=== PATIENT | female | born 1955 | race Caucasian/White ===

== ENCOUNTER 2023-07-25 12:49 | Outpatient (REF) | payer MEDICARE, SELFPAY ==
[2023-07-25 16:01] LABS: MANUAL DIFF FLAG NO
[2023-07-25 16:05] LABS: Basophils Percent Auto 0.5 % (0-2); Eosinophils Absolute Auto 0.1 X10*3/uL (0.0-0.4); Eosinophils Percent Auto 1.5 % (0-4); Hematocrit 43.6 % (37.0-47.0); Hemoglobin 13.8 g/dl (12.0-16.0); Imm Gran Abs Auto 0.02 X10*3/uL (0.00-0.03); Imm Gran Pct Auto 0.3 % (0.0-0.4); Lymphocytes Absolute Auto 1.9 X10*3/uL (1.2-4.9); Lymphocytes Percent Auto 28.4 % (20-40); Mean Corpuscular HGB Conc 31.7 g/dl (31.0-35.0); Mean Corpuscular Hemoglobin 28.9 pg (27.0-33.0); Mean Corpuscular Volume 91.4 fL (80.0-98.0); Mean Platelet Volume 11.8 fL (9.4-12.3); Monocytes Absolute Auto 0.5 X10*3/uL (0.1-1.2); Monocytes Percent Auto 6.8 % (2-11); Neutrophils Absolute Auto 4.1 x10*3/uL (2.0-8.3); Neutrophils Percent Auto 62.5 % (45-73); Platelet Count 256 X10*3/uL (160-400); Red Blood Count 4.77 X10*6/uL (4.20-5.50); Red Cell Distribution Width 13.4 % (11.0-16.0); White Blood Count 6.6 X10*3/uL (4.8-10.8)
[2023-07-25 16:51] LABS: Estimated Average Glucose 143 mg/dL; Hemoglobin A1c % 6.6 % (<6.0)
[2023-07-25 17:18] LABS: Alanine Aminotransferase 14 U/L (0-31); Alkaline Phosphatase 101 U/L (39-117); Anion Gap 13 (12-20); Aspartate Amino Transferase 20 U/L (5-31); Bilirubin Direct 0.2 mg/dL (0.0-0.5); Bilirubin Total 0.6 mg/dL (0.0-1.0); Blood Urea Nitrogen 11 mg/dL (9-16); Calcium 9.6 mg/dL (8.4-10.2); Carbon Dioxide 31 mmol/L (22-29); Chloride 103 mmol/L (96-108); Cholesterol 198 mg/dL (<200); Estimated Glomerular Filt Rate > 60; Glucose Random 111 mg/dL (60-115); HDL Cholesterol 55 mg/dL (>40); LDL Cholesterol Calculated 121 mg/dL (<100); Potassium 3.7 mmol/L (3.3-5.1); Sodium 143 mmol/L (135-145); Total Protein 7.7 g/dL (6.5-8.0); Triglycerides 112 mg/dL (<150)
[2023-07-25 17:20] LABS: Creatinine Urine 31.53 mg/dL; Microalbumin Urine < 5.0 mg/L
[2023-07-25 17:41] LABS: Free T4 (Free Thyroxine) 1.43 ng/dL (0.71-1.85); Thyroid Stimulating Hormone 0.25 uIU/mL (0.32-4.0); Vitamin D 25-OH Total 45.2 ng/mL (>30)
[2023-07-28 04:19] LABS: Vitamin A 27 mcg/dL (38-98)
== END 2023-07-25 12:50 | disposition home or self-care (01) ==
LOC: HO.HHCL 12:49
PROVIDERS: Visit Provider Family Medicine
DX: E11.40 Type 2 diabetes mellitus with diabetic neuropathy, unspecified (principal); Z79.4 Long term (current) use of insulin; E55.9 Vitamin D deficiency, unspecified
CPT/HCPCS: 36415; 80048; 80061; 80076; 82043; 82306; 82570; 83036; 84439; 84443; 84590; 85025

== ENCOUNTER 2023-12-23 13:06 | Outpatient (REF) | payer MEDICARE, SELFPAY ==
[2023-12-23 17:08] LABS: Cholesterol 191 mg/dL (<200); HDL Cholesterol 66 mg/dL (>40); LDL Cholesterol Calculated 109 mg/dL (<100); Triglycerides 84 mg/dL (<150)
[2023-12-23 17:10] LABS: Thyroid Stimulating Hormone 0.13 uIU/mL (0.32-4.0)
[2023-12-29 04:44] LABS: Vitamin A 30 mcg/dL (38-98)
== END 2023-12-23 13:07 | disposition home or self-care (01) ==
LOC: HO.HHCL 13:06
PROVIDERS: Visit Provider Family Medicine
DX: E11.9 Type 2 diabetes mellitus without complications (principal); Z79.4 Long term (current) use of insulin
CPT/HCPCS: 36415; 80061; 84439; 84443; 84590

== ENCOUNTER 2024-05-29 12:59 | Outpatient (REF) | payer MEDICARE, SELFPAY ==
[2024-05-29 17:22] LABS: Free T4 (Free Thyroxine) 1.15 ng/dL (0.71-1.85); Thyroid Stimulating Hormone 0.19 uIU/mL (0.32-4.0)
== END 2024-05-29 13:00 | disposition home or self-care (01) ==
LOC: HO.HHCL 12:59
PROVIDERS: Visit Provider Family Medicine
DX: E03.9 Hypothyroidism, unspecified (principal)
CPT/HCPCS: 36415; 84439; 84443

== ENCOUNTER 2024-07-19 13:44 | Outpatient (REF) | payer MEDICARE, SELFPAY ==
[2024-07-19 16:42] LABS: MANUAL DIFF FLAG NO
[2024-07-19 16:47] LABS: Basophils Percent Auto 0.5 % (0-2); Eosinophils Absolute Auto 0.1 X10*3/uL (0.0-0.4); Hematocrit 40.4 % (37.0-47.0); Hemoglobin 12.9 g/dl (12.0-16.0); Imm Gran Abs Auto 0.02 X10*3/uL (0.00-0.03); Imm Gran Pct Auto 0.3 % (0.0-0.4); Lymphocytes Absolute Auto 1.9 X10*3/uL (1.2-4.9); Lymphocytes Percent Auto 30.6 % (20-40); Mean Corpuscular HGB Conc 31.9 g/dl (31.0-35.0); Mean Corpuscular Hemoglobin 29.3 pg (27.0-33.0); Mean Corpuscular Volume 91.8 fL (80.0-98.0); Mean Platelet Volume 12.3 fL (9.4-12.3); Monocytes Absolute Auto 0.4 X10*3/uL (0.1-1.2); Monocytes Percent Auto 6.1 % (2-11); Neutrophils Absolute Auto 3.8 x10*3/uL (2.0-8.3); Neutrophils Percent Auto 61.5 % (45-73); Platelet Count 204 X10*3/uL (160-400); Red Cell Distribution Width 13.5 % (11.0-16.0); White Blood Count 6.2 X10*3/uL (4.8-10.8)
[2024-07-19 16:58] LABS: Estimated Average Glucose 160 mg/dL; Hemoglobin A1C 183.0797 umol/L; Hemoglobin A1c % 7.2 % (<6.0); Total Hemoglobin (HGBA1C) 3319.9757 umol/L
[2024-07-19 17:32] LABS: Folate 12.5 ng/mL (> or = 4.0); Vitamin B12 373 pg/mL (200-900)
[2024-07-19 17:39] LABS: Alanine Aminotransferase 10 U/L (0-31); Albumin Level 3.9 g/dL (3.5-5.0); Alkaline Phosphatase 83 U/L (39-117); Anion Gap 19 (12-20); Aspartate Amino Transferase 22 U/L (5-31); Bilirubin Direct 0.2 mg/dL (0.0-0.5); Bilirubin Total 0.6 mg/dL (0.0-1.0); Blood Urea Nitrogen 16 mg/dL (9-16); Calcium 9.1 mg/dL (8.4-10.2); Carbon Dioxide 23 mmol/L (22-29); Chloride 103 mmol/L (96-108); Cholesterol 168 mg/dL (<200); Estimated Glomerular Filt Rate > 60; Glucose Random 109 mg/dL (60-115); HDL Cholesterol 56 mg/dL (>40); Iron 68 mcg/dL (30-160); LDL Cholesterol Calculated 92 mg/dL (<100); Percent Iron Saturation 27 % (15-50); Potassium 3.4 mmol/L (3.3-5.1); Sodium 142 mmol/L (135-145); Total Iron Binding Capacity 254 mcg/dL (228-428); Total Protein 7.1 g/dL (6.5-8.0); Triglycerides 101 mg/dL (<150); Unsaturated Iron Binding 186 ug/dL
[2024-07-19 17:55] LABS: Ferritin 227 ng/mL (10-250); Free T4 (Free Thyroxine) 1.26 ng/dL (0.71-1.85); Vitamin D 25-OH Total 56.9 ng/mL (>30)
[2024-07-20 08:03] LABS: Thyroglobulin Antibodies 83 IU/mL (< or = 1)
== END 2024-07-19 13:45 | disposition home or self-care (01) ==
LOC: HO.HHCL 13:44
PROVIDERS: Visit Provider Family Medicine
DX: Z00.00 Encounter for general adult medical examination without abnormal findings (principal); E11.9 Type 2 diabetes mellitus without complications; Z79.4 Long term (current) use of insulin; I10 Essential (primary) hypertension; E78.49 Other hyperlipidemia; E03.9 Hypothyroidism, unspecified; G47.33 Obstructive sleep apnea (adult) (pediatric); I87.2 Venous insufficiency (chronic) (peripheral); R29.898 Other symptoms and signs involving the musculoskeletal system; Z23 Encounter for immunization
CPT/HCPCS: 36415; 80048; 80061; 80076; 82306; 82607; 82728; 82746; 83036; 83540; 84439; 84443; 85025; 86800

== ENCOUNTER 2025-05-14 13:05 | Outpatient (REF) | payer MEDICARE, SELFPAY ==
--- OUTSIDE RECORDS SUMMARY | 2025-05-14 11:15 | XMS_ITS | Encounter Summary ---
Author Organization [employer] Address [address] [place] [address] [address] [place] [address] Care Team Providers Care Digital Account Supervisor Name Role Phone Kelley Pierce DO Primary Care Provider + [phone] Reason for Referral * Consultation (Routine) - Pending Review Specialty Diagnoses / Procedures Referred By Contac t Referred To Contact Occupational Therapy Diagnoses Venous insufficiency Kelley Pierce DO [address] [place] [address] Phone: tel: fax: Referral ID Status Reason Start Date Expiration Date Visits Requested Visits Authorized [id number] Pending Review Specialty Services Required 05/14/2025 05/14/2026 1 1 * Consultation (Routine) - Pending Review Specialty Diagnoses / Procedures Referred By Teodoro t Referred To Contact Physiatry Diagnoses Venous insufficiency Bilateral leg weakness Kelley Pierce DO [address] [place] [address] Phone: tel: fax: Referral ID Status Reason Start Date Expiration Date Visits Requested Visits Authorized [id number] Pending Review Specialty Services Required 05/14/2025 05/14/2026 1 1 * Neurology (Routine) - Authorized Specialty Diagnoses / Procedures Referred By Contomar t Referred To Contact Diagnoses Bilateral leg weakness Procedures Nerve conduction test Kelley Pierce DO [address] [place] [address] Phone: tel: fax: [address] Phone: tel: fax: Referral ID Status Reason Start Date Expiration Date V isits Requested Visits Authorized [id number] Authorized 05/14/2025 05/14/2026 1 1 * Neurology (Routine) - Authorized Specialty Diagnoses / Procedures Referred By Contomar t Referred To Contact Diagnoses Bilateral leg weakness Procedures EMG Kelley Pierce DO [address] [place] [address] Phone: tel: fax: [address] Phone: tel: fax: Referral ID Status Reason Start Date Expiration Date V isits Requested Visits Authorized [id number] Authorized 05/14/2025 05/14/2026 1 1 Encounter Details Date Type Department Care Team (Late st Contact Info) Description 05/14/2025 11:15 AM EDT Office Visit [facility] [address] [place] [address] Kelley Pierce DO [address] [place] [address] Type 2 diabetes mellitus with diabetic neuropathy, with long-term current use of insulin ([facility]) (Primary Dx); Essential hypertension; Other hyperlipidemia; Hypothyroidism (acquired); Obstructive sleep apnea; Venous insufficiency; Bilateral leg weakness; Other insomnia; Healthcare maintenance; Dietary counseling; Exercise counseling; Encounter for immunization Social History Tobacco Use Types Packs/Day Years Used Date Smoking Tobacco: Never Passive Smoke Exposure: Never Smokeless Tobacco: Never Alcohol Use Standard Drinks/Week Comments Never 0 (1 standard drink = 0.6 oz pur e alcohol) Depression Answer Date Recorded Patient Health Questionnaire-9 Score 0 05/29/2024 Patient Health Questionnaire-9 Score 0 05/29/2024 Last PHQ-9: Questionnaire Data Not on file 0 05/29/2024 Housing Stability Answer Date Recorded What is your housing situation today? I have aundrea urena 07/25/[address] you li ve. Do you have problems with any of the following? None of the above 07/25/2023 Food Insecurity Answer Date Recorded Within the past 12 months, y ou worried that your food would run out before you got money to buy more: Never True 07/25/2023 Within the past 12 months,th e food you bought just didn't last and you didn't have enough money to get more: Never True 02/2023 Transportation Answer Date Recorded In the past 12 months, has l ack of transportation kept you from medical appts, meetings, work or from getting things needed for daily living? No 07/25/2023 Utilities Answer Date Recorded In the past 12 months, has t he electric, gas, oil or water company threatened to shut off services in your home? No 07/25/2023 Depression Answer Date Recorded Patient Health Questionnaire-2 Score 0 05/29/2024 Comments No Sex and Gender Information Value Date Recorded Sex Assigned at Female 07/19/2022 10:21 AM EDT Legal Sex Female 10:21 AM EDT Gender Identity Female 07/19/2022 10:21 AM EDT Sexual Orientation Straight 02/28/2023 8: 10 AM EDT documented as of this encounter Last Filed Vital Signs Vital Sign [place] Time Taken Comments Blood Pressure 132/70 05/14/2025 11:15 AM EDT Pulse 85 05/14/2025 11:15 AM EDT Temperature 36.8 C (98.3 F) 05/14/2025 11:15 AM EDT Respiratory Rate 20 05/14/2025 11:15 AM EDT Oxygen Saturation 96% 05/14/2025 11:15 AM EDT Inhaled Oxygen Concentration - - Weight 139 kg (307 lb) 05/14/2025 11:15 AM EDT Height 170.2 cm (5' 7 ) 05/14/2025 11:15 AM EDT Body Mass Index 48.08 05/14/2025 11:15 AM EDT documented in this encounter Plan of Treatment Scheduled Orders Name Type Priority Associated Diagnoses Orde r Schedule T4, Free Lab Routine Type 2 diabetes mellitus with diabetic neuropathy, with long-term current use of insulin ([facility]) Essential hypertension Other hyperlipidemia Hypothyroidism (acquired) Obstructive sleep apnea Venous insufficiency Bilateral leg weakness Healthcare maintenance Expected: 05/14/2025 (Approximate), Expires: 05/14/2026 Lipid Panel, Standard Lab Routine Type 2 diabetes mellitus with diabetic neuropathy, with long-term current use of insulin ([facility]) Essential hypertension Other hyperlipidemia Hypothyroidism (acquired) Obstructive sleep apnea Venous insufficiency Bilateral leg weakness Healthcare maintenance Expected: 05/14/2025 (Approximate), Expires: 05/14/2026 TSH Lab Routine Type 2 diabetes mellitus with diabetic neuropathy, with long-term current use of insulin ([facility]) Essential hypertension Other hyperlipidemia Hypothyroidism (acquired) Obstructive sleep apnea Venous insufficiency Bilateral leg weakness Healthcare maintenance Expected: 05/14/2025 (Approximate), Expires: 05/14/2026 Vitamin D, 25-Hydroxy, Total, Immunoassay Lab Routine Type 2 diabetes mellitus with diabetic neuropathy, with long-term current use of insulin ([facility]) Essential hypertension Other hyperlipidemia Hypothyroidism (acquired) Obstructive sleep apnea Venous insufficiency Bilateral leg weakness Healthcare maintenance Expected: 05/14/2025 (Approximate), Expires: 05/14/2026 Hepatic Function Panel Lab Routine Type 2 diabetes mellitus with diabetic neuropathy, with long-term current use of insulin ([facility]) Essential hypertension Other hyperlipidemia Hypothyroidism (acquired) Obstructive sleep apnea Venous insufficiency Bilateral leg weakness Healthcare maintenance Expected: 05/14/2025 (Approximate), Expires: 05/14/2026 Hemoglobin A1c Lab Routine Type 2 diabetes mellitus with diabetic neuropathy, with long-term current use of insulin ([facility]) Essential hypertension Other hyperlipidemia Hypothyroidism (acquired) Obstructive sleep apnea Venous insufficiency Bilateral leg weakness Healthcare maintenance Expected: 05/14/2025 (Approximate), Expires: 05/14/2026 Basic Metabolic Panel Lab Routine Type 2 diabetes mellitus with diabetic neuropathy, with long-term current use of insulin ([facility]) Essential hypertension Other hyperlipidemia Hypothyroidism (acquired) Obstructive sleep apnea Venous insufficiency Bilateral leg weakness Healthcare maintenance Expected: 05/14/2025 (Approximate), Expires: 05/14/2026 CBC auto differential Lab Routine Type 2 diabetes mellitus with diabetic neuropathy, with long-term current use of insulin ([facility]) Essential hypertension Other hyperlipidemia Hypothyroidism (acquired) Obstructive sleep apnea Venous insufficiency Bilateral leg weakness Healthcare maintenance Expected: 05/14/2025 (Approximate), Expires: 05/14/2026 Thyroid Peroxidase Antibodies Lab Routine Hypothyroidism (acquired) Expected: 05/14/2025 (Approximate), Expires: 05/14/2026 Thyroglobulin Antibodies Lab Routine Hypothyroidism (acquired) Expected: 05/14/2025 (Approximate), Expires: 05/14/2026 EMG Neurology Routine Bilateral leg weakness Expected: 05/14/2025, Expires: 11/14/2025 Nerve conduction test Neurology Routine Bilateral leg weakness Expected: 05/14/2025 (Approximate), Expires: 05/14/2026 Scheduled Referrals Name Type Priority Associated Diagnoses Orde r Schedule Referral to Physiatry Outpatient Referral Routine Venous insufficiency Bilateral leg weakness Expected: 05/14/2025 (Approximate), Expires: 05/14/2026 Referral to Occupational Therapy Outpatient Referral Routine Venous insufficiency Expected: 05/14/2025 (Approximate), Expires: 05/14/2026 documented as of this encounter Procedures Procedure Name Priority Date/Time Associated Diagnosis Comments POCT GLYCATED HEMOGLOBIN, TOTAL Routine 05/14/2025 11:29 AM EDT Type 2 diabetes mellitus with diabetic neuropathy, with long-term current use of insulin ([facility]) POCT GLUCOSE Routine 05/14/2025 11:28 AM EDT Type 2 diabetes mellitus with diabetic neuropathy, with long-term current use of insulin ([facility]) documented in this encounter Results * (ABNORMAL) POCT HGB A1C (05/14/2025 11:29 AM EDT) Pathologist [facility] Hemoglobin A1C 7.2(A) 4.0 - 5.7 % QC Media Lot # [id number] Lot# Expiration Date 124 Blood 05/14/2025 11:2 9 AM EDT Kelley Pierce DO POINT OF CARE TEST ENTER/MARTIN T ORDERABLES Final Result * POCT Glucose (05/14/2025 11:28 AM EDT) Glucose Blood, POC 124 60 - 200 mg/dL QC Media Lot # [id number] Lot# Expiration Date ,696,819 Blood Capillary blood specimen / Unknown 05/14/2025 11:28 AM EDT Kelley Pierce DO POINT OF CARE TEST ENTER/MARTIN T ORDERABLES Final Result documented in this encounter Visit Diagnoses Diagnosis Type 2 diabetes mellitus with diabetic neuropathy, with long-term current use of insulin ([facility])- Primary Essential hypertension Unspecified essential hypertension Other hyperlipidemia Hypothyroidism (acquired) Unspecified hypothyroidism Obstructive sleep apnea Obstructive sleep apnea (adult) (pediatric) Venous insufficiency Unspecified venous (peripheral) insufficiency Bilateral leg weakness Muscle weakness (generalized) Other insomnia Healthcare maintenance Dietary counseling Dietary surveillance and counseling Exercise counseling Encounter for immunization documented in this encounter Additional Health Concerns Assessment Noted Time PHQ-9 Depression Total Score: 0 05/29/20 24 11:23 AM EDT documented as of this encounter Care Teams Digital Account Supervisor Relationship Specialty Start Date End Date Kelley Pierce DO [address] [place] [id number] PCP - General Family Medicine 09/19/18 documented as of this encounter
--- OUTSIDE RECORDS SUMMARY | 2025-05-14 13:51 | XMS_ITS | Clinical Summary ---
Author Organization [employer] Address [address] [facility] [address] [place] [address] Care Team Providers Care Manager Long Term Care Name Role Phone KariKelley Primary Care Provider [phone] Allergies Active Allergy Reactions Criticality Noted Date Comments Octacosanol 05/29/2024 Medications hydroCHLOROthi azide (HYDRODiuril) 25 MG tablet Take 1 tablet (25 mg) by mouth Once per day. 90 tablet 3 024 2024 Active lisinopril 40 MG tablet TAKE 1 TABLET(40 MG) BY MOUTH IN THE MORNING 90 tablet 3 Active atorvastatin (Lipitor) 10 MG tablet TAKE 1 TABLET(10 MG) BY MOUTH IN THE MORNING 90 tablet 3 024 Active HumaLOG KWIKPEN 100 UNIT/ML injection Inject 8-16 Units under the skin with breakfast, with lunch, and with evening meal. 60 mL 2 Active levothyroxine (Synthroid) 137 MCG tablet Take 137 mcg by mouth before breakfast. 30 tablet 11 025 2025 Active Mounjaro 15 MG/0.5ML solution auto-injectorI ndications:Typ e 2 diabetes mellitus with diabetic neuropathy, with long-term current use of insulin ([facility]) ADMINISTER 15 MG UNDER THE SKIN 1 TIME EVERY WEEK 2 mL 3 025 Active insulin glargine (Lantus SoloStar) 100 UNIT/ML pen INJECT SUBCUTANEOUSLY 40 UNITS EVERY EVENING 45 mL 2 025 Active amitriptyline (Elavil) 10 MG tablet Take 1-2 tablets (10-20 mg) by mouth at bedtime. 60 tablet 3 025 2025 Active Continuous Glucose [employer]orer (FreeStyle Blane 3 Manns Choice) device 1 each Once per day. Use as directed for CGM 1 each 025 Active Continuous Glucose Sensor (FreeStyle Blane 3 Plus Sensor) misc 1 each every 15 days. Apply 1 every 15 days as directed for CGM 2 each Active glucose blood (FreeStyle Precision Dano Test) test strip Use to test blood sugar 3 times daily in case of CGM failure or extremes of BG 100 each 11 025 2025 Active Blood Glucose Monitoring Suppl (Accu-Chek Mary Grace Plus) w/Device kit Use as directed to check BS three times a day 1 kit Active Blood Glucose Calibration (Accu-Chek Mary Grace) solution Use as directed 1 each Active Alcohol Sheets (Alcoh-Wipe) sheet Test daily before all meals/snacks and once before bedtime. 1 each 11 Active Continuous Blood Gluc [employer]orer (FreeStyle Blane 2 Manns Choice) device 1 each 3 times daily. 1 each 023 2024 Discontinued Continuous Glucose [employer]orer (FreeStyle Blane 2 Manns Choice) device 1 each 3 times daily. 1 each 024 2024 Discontinued glucose blood (OneTouch Verio) test stripIndicatio ns:Type 2 diabetes mellitus with diabetic neuropathy, with long-term current use of insulin ([facility]) USE DIRECTED UP TO 6 TIMES A DAY 100 each 5 024 2024 Discontinued Continuous Glucose Sensor (FreeStyle Blane 2 Sensor) misc USE TO TEST 3 TIMES DAILY DIRECTED 8 each 2 025 2024 Discontinued Active Problems Problem Noted Date Diagnosed Date Hyperlipidemia 08/25/2015 Obstructive sleep apnea 08/25/2015 Peripheral neuropathy 08/25/2015 Psoriasis 08/25/2015 Vitamin D deficiency 08/25/2015 History of necrotising fasciitis 09/13/2014 Diabetic retinopathy 12/23/2008 Overview (02/28/2023): Sees Dr Boykin, 11/20/09 mild retinopathy BMI 50.0-59.9, adult 05/07/2008 Hypothyroidism 11/12/2007 Essential hypertension 09/09/2006 Type 2 diabetes mellitus 06/15/2006 Overview (02/28/2023): she states she is followed for DM at [facility] and that her labs are up to date there. 08/31/[address] Johnson to be scheduled 06/26 Resolved Problems Problem Noted Date Diagnosed Date Resolved Date Recurrent ventral incisional hernia 12/17/2015 02/28/2023 Pure hypercholesterolemia 09/09/2006 Encounters Date Type Department Care Team Description 05/14/2025 11:15 AM EDT Office Visit [facility] [address] [place] [address] [phone] Kelley Pierce DO Type 2 diabetes mellitus with diabetic neuropathy, with long-term current use of insulin ([facility]) (Primary Dx); Essential hypertension; Other hyperlipidemia; Hypothyroidism (acquired); Obstructive sleep apnea; Venous insufficiency; Bilateral leg weakness; Other insomnia; Healthcare maintenance; Dietary counseling; Exercise counseling; Encounter for immunization 05/14/2025 Travel 05/13/2025 Telephone [facility] [address] [place] [address] [phone] Kelley Pierce DO chart prep 05/13/2025 Telephone [facility] [address] [place] [address] [phone] Kelley Pierce DO Insurance 04/25/2025 Telephone [facility] [address] [place] [address] [phone] Kelley Pierce DO Recall Appointment 04/25/2025 Travel 04/08/2025 Refill [facility] [address] [place] [address] [phone] Daniela Sanchez ANP 04/06/2025 Refill [facility] [address] [place] [address] [phone] Kelley Pierce DO from Last 3 Months Immunizations Immunization Administration Dates Next Due Influenza High-dose Quadriva lent Preservative Free 07/25/2023,07/21/2022 Influenza injectable quadriv alent IIV4 with preservative 11/16/2017 Influenza injectable quadriv alent preservative free 07/11/2020,06/18/2019,08/25/2015 Influenza, High Dose Seasona l, Preservative Free 05/29/2024 Influenza, IIV3, injectable 06/26/2009, 8 Novel [id number], preservative-free 09/26 Pfizer Covid-19 Vaccine 12+ 10/09/2024, 4,07/25/2023 Pneumococcal Conjugate PCV 20 07/21/2022 Pneumococcal Polysaccharide PPSV23 08/25/2015 Tdap 05/14/2025,05/19/2015,11/30/2007 Social History Tobacco Use Types Packs/Day Years Used Date Smoking Tobacco: Never Passive Smoke Exposure: Never Smokeless Tobacco: Never Tobacco Cessation:Counseling Given: Not Answered Alcohol Use Standard Drinks/Week Comments Never 0 [...] Orientation Straight 02/28/2023 8: 10 AM EDT Last Filed Vital Signs Vital Sign Reading [...] Mass Index 48.08 05/14/2025 11:15 AM EDT Plan of Treatment Health Maintenance Due Date Last Done Comments CT Colonography 1957 Colonoscopy 1957 FIT 1957 FOBT 1957 Sigmoidoscopy 1957 Diabetes: Foot Exam 1967 Eye Exam 1967 Hepatitis C Screening 1975 Zoster Vaccines (1 of 2) 2007 RSV Patients and Patients Aged 60 years or older (1 - Risk 60-74 years 1-dose series) 2017 Diabetes: Urine Protein Screening 07/25/2024 07/25/2023 SDOH Screening 12/14/2024 12/15/2023 Mammogram 02/02/2025 02/02/2023 COVID-19 Vaccine ( season) 2025 10/09/2024, 12/23/2023, 07/25/2023, Additional history exists Influenza Vaccine (#1) 2025 , 07/25/2023, 07/21/2022, Additional history exists Depression Screening 05/29/2025 05/29/2024, 05/29/20 24 Lipid Panel 07/19/2025 07/19/2024, 04/0 01/2024, 07/25/2023 Diabetes: Hemoglobin A1C 08/14/2025 025, 10/09/2024, 07/19/2024, Additional history exists Alcohol/Substance Use Screening 05/14/2026 05/14/2025 Tobacco Screening 05/14/2026 05/14/2025 Colorectal Cancer Screening 11/03/2026 FIT DNA/Cologuard 11/03/2026 11/03/2023 DTaP/Tdap/Td Vaccines (4 - Td or Tdap) 05/14/2035 05/14/2025, 05/19/2015, 11/30/2007 Pneumococcal Vaccine: 50+ Years Completed 07/21/2022, 08/25/2015 HIB Vaccines Aged Out No longer eligi ble based on patient's age to complete this topic HPV Vaccines Aged Out No longer eligi ble based on patient's age to complete this topic Hepatitis A Vaccines Aged Out No long er eligible based on patient's age to complete this topic Hepatitis B Vaccines Aged Out No long er eligible based on patient's age to complete this topic IPV Vaccines Aged Out No longer eligi ble based on patient's age to complete this topic Meningococcal B Vaccine Aged Out No l onger eligible based on patient's age to complete this topic Meningococcal Vaccine Aged Out No adrian donny eligible based on patient's age to complete this topic RSV under 20 months Aged Out No longe r eligible based on patient's age to complete this topic Rotavirus Vaccines Aged Out No longer eligible based on patient's age to complete this topic Procedures Procedure Name Priority Date/Time Associated Diagnosis Comments POCT GLYCATED HEMOGLOBIN, TOTAL Routine 05/14/2025 11:29 AM EDT Type 2 diabetes mellitus with diabetic neuropathy, with long-term current use of insulin ([facility]) POCT GLUCOSE Routine 05/14/2025 11:28 AM EDT Type 2 diabetes mellitus with diabetic neuropathy, with long-term current use of insulin ([facility]) LIPID PANEL, STANDARD Routine 07/19/2024 1:45 PM EDT Type 2 diabetes mellitus without complication, with long-term current use of insulin (CMS/HCC) Essential hypertension Other hyperlipidemia Hypothyroidism (acquired) Obstructive sleep apnea Venous insufficiency Bilateral leg weakness Healthcare maintenance Encounter for immunization LAB COLOGUARD COLON CANCER SCREEN Routine 11/03/2023 9:45 AM EST Healthcare maintenance ALBUMIN, RANDOM URINE W/CREATININE Routine 07/25/2023 12:53 PM EST HM MAMMOGRAPHY Routine 02/02/2023 from Last 3 Months or Most Recently Relevant to Health Maintenance Results * (ABNORMAL) POCT HGB A1C (05/14/2025 11:29 AM EDT) Hemoglobin A1C 7.2(A) 4.0 - 5.7 % QC Media Lot # [id number] Lot# Expiration Date Blood 05/14/2025 11:2 9 AM EDT Kelley Pierce DO POINT OF CARE TEST ENTER/MARTIN T ORDERABLES Final Result * POCT Glucose (05/14/2025 11:28 AM EDT) Glucose Blood, POC 124 60 - 200 mg/dL [employer] Lot # [id number] Lot# Expiration Date Blood Capillary blood specimen / Unknown 05/14/2025 11:28 AM EDT Kelley Pierce DO POINT OF CARE TEST ENTER/MARTIN T ORDERABLES Final Result * Lipid Panel, Standard (07/19/2024 1:45 PM EDT) Triglycerides 101 <150 mg/dL [facility] Comment:Desirable Triglyceri de: less than 150 mg/dLBorderline High Triglyceride 150-199 mg/dLHigh Triglyceride: 200-499 mg/dLVery High Triglyceride: greater than or equal to 5OO mg/dL Cholesterol 168 <200 mg/dL [facility] Comment:Desirable Cholestero l: less than 200 mg/dLBorderline High Cholesterol: 200-239 mg/dLHigh Cholesterol: greater than 239 mg/dL LDL Cholesterol Calculated 92 <100 mg/dL [facility] Comment:Desirable LDL: less than 100 mg/dLNear Optimal/Above Optimal LDL: 110- 129 mg/dLBorderline High LDL: 130-159 mg/dLHigh LDL: 160-189 mg/dLVery High LDL: greater than or equal to 190 mg/dL HDL Cholesterol 56 >40 mg/dL [facility] Comment:Desirable HDL: great er than 40 mg/dL Note: This HDL assay may give artificially low results in patients with liver disease. Blood Venous blood specimen / Unknown 07/19/2024 1:45 PM EDT 07/19/2024 4:35 PM EDT Kelley Pierce DO LAB BLOOD ORDERABLES Final R esult [facility] [address] [place] [phone] * Cologuard?? colon cancer screening (11/03/2023 9:45 AM EST) Cologuard Result Negative Negative 11/15/19 10:05 AM EST [facility] (CLIA #:[id number]) Comment: NEGATIVE TEST RESULT. A negative Cologuard result indicates a low likelihood that a colorectal cancer (CRC) or advanced adenoma (adenomatous polyps with more advanced pre-malignant features) is present. The chance that a person with a negative Cologuard test has a colorectal cancer is less than 1 in 1500 (negative predictive value >99.9%) or has an advanced adenoma is less than 5.3% (negative predictive value 94.7%). These data are based on a prospective cross-sectional study of 10,000 individuals at average risk for colorectal cancer who were screened with both Cologuard and colonoscopy. (Jose Hansen al, N Engl J Med 2014;370(14):4929-8204) The normal value (reference range) for this assay is negative. COLOGUARD RE-SCREENING RECOMMENDATION: Periodic colorectal cancer screening is an important part of preventive healthcare for asymptomatic individuals at average risk for colorectal cancer. Following a negative Cologuard result, the [place] Cancer Society and U.S. Multi-Society Task Force screening guidelines recommend a Cologuard re-screening interval of 3 years. References: [place] [employer] Guideline for Colorectal Cancer Screening: https://www.cancer.org/cancer/gpgur-edwncn-kmbmgc/wbwrcypdp-ootsszosh-xqowtgv/ac s-rec ommendations.html.; Juan Jose DK, Fredy PRIETO, Tristan BarberK, Colorectal Cancer Screening: Recommendations for Physicians and Patients from the U.S. Multi-Society Task Force on Colorectal Cancer Screening , Am J Gastroenterology 2017; 112:4332-9574. TEST DESCRIPTION: Composite algorithmic analysis of stool DNA-biomarkers with hemoglobin immunoassay. Quantitative values of individual biomarkers are not reportable and are not associated with individual biomarker result reference ranges. Cologuard is intended for colorectal cancer screening of adults of either sex, 45 years or older, who are at average-risk for colorectal cancer (CRC). Cologuard has been approved for use by the U.S. FDA. The performance of Cologuard was established in a cross sectional study of average-risk adults aged 50-84. Cologuard performance in patients ages 45 to 49 years was estimated by sub-group analysis of near-age groups. Colonoscopies performed for a positive result may find as the most clinically significant lesion: colorectal cancer [4.0%], advanced adenoma (including sessile serrated polyps greater than or equal to 1cm diameter) [20%] or non- advanced adenoma [31%]; or no colorectal neoplasia [45%]. These estimates are derived from a prospective cross-sectional screening study of 10,000 individuals at average risk for colorectal cancer who were screened with both Cologuard and colonoscopy. (Jose Hansen al, N Engl J Med 2014;370(14):0043-2568.) Cologuard may produce a false negative or false positive result (no colorectal cancer or precancerous polyp present at colonoscopy follow up). A negative Cologuard test result does not guarantee the absence of CRC or advanced adenoma (pre-cancer). The current Cologuard screening interval is every 3 years. ([place] Cancer Society and U.S. Multi-Society Task Force). Cologuard performance data in a 10,000 patient pivotal study using colonoscopy as the reference method can be accessed at the following location: www.[employer].com/results. Additional description of the Cologuard test process, warnings and precautions can be found at www.colTelecon Grouprd.[employer]. Stool specimen (specimen) 11/03/2023 9:45 AM EST 11/05/2023 2:13 PM EST Kelley Pierce DO LAB MOLECULAR DIAGNOSTICS OR DERABLES Final Result [facility] (CLIA #:[id number]) [address] [place] [address], * Albumin, Random Urine W/Creatinine (07/25/2023 12:53 PM EST) Creatinine, Urine 31.53 mg/dL [facility] Microalbumin Urine <5.0 mg/L [facility] Microalbum Creatinine Ratio Ur TNP <30 ug/mg cr [facility] Comment:Unable to calculate albumin/creatinine ratio due to lowmicroalbumin or creatinine result. 07/25/2023 12:5 3 PM EST 07/25/2023 3:48 PM EST Kelley Pierce DO LAB URINE ORDERABLES Final R esult Performing Organization Address [facility]/ZIP Co de Phone Number [facility] [address] [place] [address] [phone] * Mammography (02/02/2023) Mammogram birads 2- benign Anatomical Region Laterality Modality Other Historical Provider HEALTH MAINTENANCE Final Result from Last 3 Months or Most Recently Relevant to Health Maintenance Insurance [facility] MEDICARE ADVANTAGE Care Teams Manager Long Term Care Relationship Specialty Start Date End Date Kelley Pierce DO [address] [place] [address] [phone] PCP - General Family Medicine 09/19/18
--- OUTSIDE RECORDS SUMMARY | 2025-05-14 13:51 | XMS_ITS | Encounter Summary ---
Author Organization [employer] Address [address] [facility] 7t [place] [address] Care Team Providers Care Architecture Manager Name Role Phone Kelley Pierce DO Primary Care Provider + [phone] Reason for Visit * Reason Comments Med Refill Encounter Details Date Type Department Care Team (Late st Contact Info) Description 06/12/2024 Refill [facility] [address] [place], [place] [phone] Kelley Pierce DO [address] [place] [address] Social History Tobacco Use Types Packs/Day Years [...] Patient Health Questionnaire-2 Score 0 05/29/2024 Comments Unknown Sex and Gender Information Value Date Recorded Sex Assigned at Female 07/19/2022 10:21 AM EDT Legal Sex Female 10:21 AM EDT Gender Identity Female 07/19/2022 10:21 AM EDT Sexual Orientation Straight 02/28/2023 8: 10 AM EDT documented as of this encounter Plan of Treatment Not on file documented as of this encounter Visit Diagnoses Not on filedocumented in this encounter Additional Health Concerns Assessment Noted Time PHQ-9 Depression Total Score: 0 05/29/20 24 11:23 AM EDT documented as of this encounter Care Teams Architecture Manager Relationship Specialty Start Date End Date Kelley Pierce DO [address] [place] [phone] PCP - General Family Medicine 09/19/18 documented as of this encounter
--- OUTSIDE RECORDS SUMMARY | 2025-05-14 13:51 | XMS_ITS | Encounter Summary ---
Author Organization [employer] Address [address] [facility] 7t [place] [address] Care Team Providers Care Game And Fish Protector Name Role Phone Kelley Pierce DO Primary Care Provider + [phone] Reason for Visit * Reason Onset Date Comments chart prep 05/13/2025 Encounter Details Date Type Department Care Team ([facility] st Contact Info) Description 05/13/2025 Telephone [facility] [address] [place], [place] [phone] Kelley Pierce DO [address] [place] [address] chart prep Social History Tobacco Use Types Packs/Day Years [...] AM EDT documented as of this encounter Miscellaneous Notes * Telephone Encounter - Ary Junior [place] - 05/13/2025 1:28 PM EDT Chart Prep Labs: not done ( TC made and pt stated that she will get them done tomorrow 05/14/25) Images: done Referrals: appointment pending REFERRAL TO PHYSICAL MEDICINE REHAB/PHYSIATRY no Canceling referral due to notes not being signed. Vaccines due: Covid, Flu, and Tdap Screenings: mammogram, eye exam, and foot exam Overdue care gaps: A1c, Glucose, SBIRT, SDOH, PHQ-9, and NIMO-7 documented in this encounter Plan of Treatment Not on file documented as of this encounter Visit Diagnoses Not on filedocumented in this encounter Additional Health Concerns Assessment Noted Time PHQ-9 Depression Total Score: 0 05/29/20 24 11:23 AM EDT documented as of this encounter Care Teams Game And Fish Protector Relationship Specialty Start Date End Date Kelley Pierce DO [address] [place] [phone] PCP - General Family Medicine 09/19/18 documented as of this encounter
--- OUTSIDE RECORDS SUMMARY | 2025-05-14 13:51 | XMS_ITS | Encounter Summary ---
Author Organization [employer] Address [address] [facility] 7t [place] [address] Care Team Providers Care Manual Control Auger Press Operator Name Role Phone Kelley Pierce DO Primary Care Provider + [phone] Reason for Visit * Reason Comments Med Refill Encounter Details Date Type Department Care Team (Late st Contact Info) Description 12/09/2023 Refill [facility] [address] [place], [place] [phone] Kelley Pierce DO [address] [place], [place] [phone] Social History Tobacco Use Types Packs/Day Years Used Date Smoking Tobacco: Never Passive Smoke Exposure: Never Smokeless Tobacco: Never Depression Answer Date Recorded Patient Health Questionnaire-9 Score 0 02/28/2023 Housing Stability Answer Date Recorded What is [...] Date Recorded Patient Health Questionnaire-2 Score 0 02/28/2023 Comments Unknown Sex and Gender Information Value [...] Noted Time PHQ-9 Depression Total Score: 0 02/29/20 23 12:22 PM EDT documented as of this encounter Care Teams Manual Control Auger Press Operator Relationship Specialty Start Date End Date Kelley Pierce DO [address] [place] [phone] PCP - General Family Medicine 09/19/18 documented as of this encounter
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
--- OUTSIDE RECORDS SUMMARY | 2025-05-14 13:51 | XMS_ITS | Encounter Summary ---
Author Organization [employer] Address [address] [facility] 7t [place] [address] Care Team Providers Care Letter Of Credit Clerk Name Role Phone Kelley Pierce DO Primary Care Provider + [phone] Reason for Visit * Reason Onset Date Comments Insurance 05/13/2025 Encounter Details Date Type Department Care Team ([facility] st Contact Info) Description 05/13/[address] [facility] MEDICINE [address] [place], [place] [phone] Kelley Pierce DO [address] [place], [place] [phone] Insurance Social History Tobacco Use Types Packs/Day Years [...] 10:21 AM EDT Sexual Orientation Straight 02/28/2023 8 :10 AM EDT documented as of this encounter Miscellaneous Notes * Telephone Encounter - Emilie Soria - 05/13/2025 12:59 PM EDT Called pt to inform them of their appt tomorrow there insurance is coming back inactive if they have a new insurance they can give us a call or if they want they can come to the second or third floorto speak to insurance enrollment. documented in this encounter Plan of Treatment Not on file documented as of this encounter Visit Diagnoses Not on filedocumented in this encounter Additional Health Concerns Assessment Noted Time PHQ-9 Depression Total Score: 0 05/29/20 24 11:23 AM EDT documented as of this encounter Care Teams Letter Of Credit Clerk Relationship Specialty Start Date End Date Kelley Pierce DO [address] [place] [id number] PCP - General Family Medicine 09/19/18 documented as of this encounter
--- OUTSIDE RECORDS SUMMARY | 2025-05-14 13:51 | XMS_ITS | Encounter Summary ---
Author Organization [employer] Address [address] [facility] 7t [place] [address] Care Team Providers Care Spiritual Care Coordinator Name Role Phone Kelley Pierce Primary Care Provider + [phone] Encounter Details Date Type Department Care Team (Latest Contact Info) Description 05/14/2025 Travel Social History Tobacco Use Types Packs/Day Years [...] documented as of this encounter Care Teams Spiritual Care Coordinator Relationship Specialty Start Date End Date Kelley Pierce DO [address] [place] [id number] PCP - General Family Medicine 09/19/18 documented as of this encounter
--- OUTSIDE RECORDS SUMMARY | 2025-05-14 13:51 | XMS_ITS | Encounter Summary ---
Author Organization [employer] Address [address] [facility] 7t [place] [address] Care Team Providers Care Credit Card Control Clerk Name Role Phone DeoKelley rabago Primary Care Provider + [phone] Reason for Visit * Reason Comments Med Refill Encounter Details Date Type Department Care Team (Late st Contact Info) Description 09/14/2023 Refill [facility] MEDICINE [address] [place], [place] [phone] Nilda Schaffer MD [address] [place], [place] [phone] Social History Tobacco Use Types Packs/Day Years Used Date Smoking Tobacco: Never Passive Smoke Exposure: Never Smokeless Tobacco: Never Depression Answer Date Recorded Patient Health Questionnaire-9 Score 0 02/28/2023 Housing Stability Answer Date Recorded What is your housing situation today? I have aundreakristofer urena 07/25/[address] you [...] documented as of this encounter Care Teams Credit Card Control Clerk Relationship Specialty Start Date End Date Kelley Pierce DO [address] [place] [address] PCP - General Family Medicine 09/19/18 documented as of this encounter
--- OUTSIDE RECORDS SUMMARY | 2025-05-14 13:51 | XMS_ITS | Encounter Summary ---
Author Organization [employer] Address [address] [facility] 7t [place] [address] Care Team Providers Care Delivery Driver Name Role Phone Kelley Pierce DO Primary Care Provider + [phone] Encounter Details Date Type Department Care Team ([facility] st Contact Info) Description 05/09/2024 Orders Only [facility] MEDICINE [address] [place], [place] [phone] Kelley Pierce DO [address] [place], [place] [phone] Social History Tobacco Use Types Packs/Day Years [...] documented as of this encounter Care Teams Delivery Driver Relationship Specialty Start Date End Date Kelley Pierce DO [address] [place] [address] PCP - General Family Medicine 09/19/18 documented as of this encounter
[2025-05-14 16:15] LABS: MANUAL DIFF FLAG NO
[2025-05-14 16:25] LABS: Hematocrit 42.2 % (37.0-47.0); Hemoglobin 13.3 g/dl (12.0-16.0); Imm Gran Abs Auto 0.02 X10*3/uL (0.00-0.03); Imm Gran Pct Auto 0.3 % (0.0-0.4); Lymphocytes Absolute Auto 2.8 X10*3/uL (1.2-4.9); Mean Corpuscular HGB Conc 31.5 g/dl (31.0-35.0); Mean Corpuscular Hemoglobin 29.4 pg (27.0-33.0); Mean Corpuscular Volume 93.4 fL (80.0-98.0); NRBC Abs Auto 0.000 X10*3/uL (0.0-0.012); NRBC Pct Auto 0.0 /100WBC (0.0-0.2); Platelet Count 253 X10*3/uL (160-400); Red Blood Count 4.52 X10*6/uL (4.20-5.50); White Blood Count 6.9 X10*3/uL (4.8-10.8)
[2025-05-14 16:51] LABS: Alanine Aminotransferase 14 U/L (0-31); Albumin Level 4.1 g/dL (3.5-5.0); Alkaline Phosphatase 71 U/L (39-117); Anion Gap 15 (12-20); Aspartate Amino Transferase 27 U/L (5-31); Blood Urea Nitrogen 19 mg/dL (9-16); Calcium 9.7 mg/dL (8.4-10.2); Carbon Dioxide 27 mmol/L (22-29); Chloride 105 mmol/L (96-108); Cholesterol 230 mg/dL (<200); Estimated Glomerular Filt Rate 52; HDL Cholesterol 37 mg/dL (>40); Potassium 3.7 mmol/L (3.3-5.1); Sodium 143 mmol/L (135-145); Total Protein 7.1 g/dL (6.5-8.0); Triglycerides 164 mg/dL (<150)
[2025-05-14 16:57] LABS: Free T4 (Free Thyroxine) 1.43 ng/dL (0.71-1.85); Thyroid Stimulating Hormone 0.60 uIU/mL (0.32-4.0)
[2025-05-14 18:03] LABS: Hemoglobin A1C 192.7612 umol/L; Total Hemoglobin (HGBA1C) 3560.2467 umol/L
[2025-05-15 18:04] LABS: Thyroglobulin Antibodies 89 IU/mL (< or = 1)
== END 2025-05-14 13:06 | disposition home or self-care (01) ==
LOC: HO.HHCL 13:05
PROVIDERS: PCP Family Medicine; Visit Provider Family Medicine
DX: Z00.00 Encounter for general adult medical examination without abnormal findings (principal); Z23 Encounter for immunization; I10 Essential (primary) hypertension; I87.2 Venous insufficiency (chronic) (peripheral); E11.40 Type 2 diabetes mellitus with diabetic neuropathy, unspecified; E78.49 Other hyperlipidemia; E03.9 Hypothyroidism, unspecified; G47.33 Obstructive sleep apnea (adult) (pediatric); R29.898 Other symptoms and signs involving the musculoskeletal system; Z79.4 Long term (current) use of insulin
CPT/HCPCS: 36415; 80048; 80061; 80076; 82306; 83036; 84439; 84443; 85025; 86376; 86800

== ENCOUNTER 2025-08-07 12:27 | Outpatient (REF) | payer MEDICARE, SELFPAY ==
--- NOTE | 2025-08-07 | EMG_ITS ---
Chief complaint: Had an episode of lower extremity weakness last year, which per patient has improved. Reason for referral: Evaluate for Referred by: Procedure done: Precautions and/or limitations: Difficulty with positioning during testing. Significant bilateral pedal edema. Chronic skin changes in bilateral ankles and psoriasis plaques on right knee. The limb temperature was monitored continuously and remained between 32-36 degrees C during the performance of the NCS. Nerve Conduction Studies Anti Sensory Summary Table ?Stim Site NR Onset (ms) Norm Onset (ms) Peak (ms) Norm Peak (ms) O-P Amp (?V) Norm O-P Amp Site1 Site2 Delta-0 (ms) Dist (cm) Rip (m/s) Norm Rip (m/s) Left Sural Anti Sensory (Lat Mall) Calf ? 3.2 4.5 <4.0 3.8 >5.0 Calf Lat Mall 3.2 14.0 44 Site 2 NR Right Sural Anti Sensory (Lat Mall) Calf ? 1.8 3.0 <4.0 18.6 >5.0 Calf Lat Mall 1.8 14.0 78 ? 1.9 2.9 26.4 ? 2.3 3.0 13.3 Motor Summary Table ?Stim Site NR Onset (ms) Norm Onset (ms) O-P Amp (mV) Norm O-P Amp iAmp (mV) Amp (1st) (%) Site1 Site2 Delta-0 (ms) Dist (cm) Rip (m/s) Norm Rip (m/s) Right Peroneal TA Motor (Tib Ant) Fib Head NR <4.2 Fib Head Tib Ant 0.0 Poplit ? 4.0 <5.7 1.2 1.3 Poplit Fib Head 0.0 >40.5 Left Tibial Motor (Abd Paula Brev) Ankle NR <5 >2.5 Ankle Abd Paula Brev 0.0 Knee NR Knee Ankle 0.0 >40 Right Tibial Motor (Abd Paula Brev) Ankle NR <5 >2.5 Ankle Abd Paula Brev 0.0 Knee NR Knee Ankle 0.0 >40 EMG ?Side Muscle Nerve Root Ins Act Fibs Psw Amp Dur Poly Recrt Int Pat Comment Right AbdHallucis MedPlantar S1-2 Nml Nml Nml Nml Nml 0 Nml Complete Right AntTibialis Dp Br Peron L4-5 Nml Nml Nml Nml Nml 0 Nml Complete Right PostTibialis Tibial L5, S1 Nml Nml Nml Nml Nml 0 Nml Complete Right MedGastroc Tibial S1-2 Nml Nml Nml Nml Nml 0 Nml Complete Right VastusMed Femoral L2-4 Nml Nml Nml Nml Nml 0 Nml Complete Left AbdHallucis MedPlantar S1-2 Nml Nml Nml Nml Nml 0 Nml Complete Left AntTibialis Dp Br Peron L4-5 Nml Nml Nml Nml Nml 0 Nml Complete Left PostTibialis Tibial L5, S1 Nml Nml Nml Nml Nml 0 Nml Complete Left MedGastroc Tibial S1-2 Nml Nml Nml Nml Nml 0 Nml Complete Left VastusMed Femoral L2-4 Nml Nml Nml Nml Nml 0 Nml Complete FINDINGS: Right peroneal nerve showed very small/absent distal responses. Bilateral tibial nerves showed absent responses. Right sural sensory nerves showed absent response. Left sural sensory nerve appeared within normal. Concentric needle EMG was performed in selected muscles of the bilateral lower extremity. Study did not reveal signs of electric abnormalities as shown in the table above. IMPRESSION: 1. This is an abnormal study. 2. 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 3. Difficult to do needle EMG, could not do lumbar paraspinals due to difficulty positioning, but no definitive evidence for lumbar radiculopathy. CLINICAL COMMENT: Consider separate lumbar spine workup if suspected lumbar related weakness. Thank you for your kind referral. Tiana Yost MD, ADINA Board Certified, [place] Board of [employer] Medicine and Rehabilitation (ABPMR) Board Certified, [place] Board of Electrodiagnostic Medicine (ABEM) CODIN [address] x 2 extremities MTDD
[2025-08-07 15:28] LABS: Free T4 (Free Thyroxine) 1.44 ng/dL (0.71-1.85); Thyroid Stimulating Hormone 1.39 uIU/mL (0.32-4.0)
--- OUTSIDE RECORDS SUMMARY | 2025-08-07 23:32 | XMS_ITS | Encounter Summary ---
Author Organization [facility] Address [address] [place] [address] Care Team Providers Care After School Program Director Name Role Phone Kelley Pierce DO Primary Care Provider Unava ilable Encounter Details Date Type Department Care Team Description 01/08/2016 Hospital Medical Records [address] [place] [phone] Sweetie Alvarado MD Social History Tobacco Use Types Packs/Day Years Used Date Smoking Tobacco: Never Smokeless Tobacco: Never Alcohol Use Standard Drinks/Week Comments No 0 (1 standard drink = 0.6 oz pur e alcohol) Alcohol Habits Answer Date Recorded How often do you have a drink containing alcohol ? Never 05/19/2020 How many drinks containing a lcohol do you have on a typical day when you are drinking? Not asked How often do you have six or more drinks on one occasion? Never 05/19/2020 Sex Assigned at Date Recorded Not on file Job Start Date Occupation Industry Not on file Not on file Not on file documented as of this encounter Plan of Treatment Not on file documented as of this encounter Visit Diagnoses Not on filedocumented in this encounter Care Teams After School Program Director Relationship Specialty Start Date End Date Kelley Pierce DO PCP - General Internal Medicine 02/11/15 documented as of this encounter
--- OUTSIDE RECORDS SUMMARY | 2025-08-07 23:32 | XMS_ITS | Encounter Summary ---
Author Organization [employer] Address [address] [facility] 7t [place] [address] Care Team Providers Care Supervisor Channel Process Name Role Phone Kelley Pierce DO Primary Care Provider + [phone] Reason for Visit * Reason Comments Med Refill Encounter Details Date Type Department Care Team (Late st Contact Info) Description 12/09/2023 Refill [facility] MEDICINE [address] [place], [place] [phone] Kelley Pierce DO [address] [place], [place] [phone] Social History Tobacco Use Types Packs/Day Years [...] documented as of this encounter Care Teams Supervisor Channel Process Relationship Specialty Start Date End Date Kelley Pierce DO [address] [place] [id number] PCP - General Family Medicine 09/19/18 documented as of this encounter
--- OUTSIDE RECORDS SUMMARY | 2025-08-07 23:32 | XMS_ITS | Encounter Summary ---
Author Organization [facility] Address [address] [place] [address] Care Team Providers Care Breaster Name Role Phone Sally Weeks Primary Care Provider Kelley Kerns DO Primary Care Provider Dayna ilgraciela Encounter Details Date Type Department Care Team Description 11/29/2014 Transfer Records Medical Records [address] [place] [address] Abstract, Provider Social History Tobacco Use Types Packs/Day Years Used Date Smoking Tobacco: Never Alcohol Use Standard Drinks/Week Comments [...] on filedocumented in this encounter Care Teams Breaster Relationship Specialty Start Date End Date Sally Weeks PCP - General Internal Medicine 10/25/14 02/10/15 Kelley Pierce DO PCP - General Internal Medicine 02/11/15 documented as of this encounter
--- OUTSIDE RECORDS SUMMARY | 2025-08-07 23:32 | XMS_ITS | Encounter Summary ---
Author Organization [facility] Address [address] [place] [address] Care Team Providers Care Oil Dispatcher Name Role Phone Community, Pcp Primary Care Provider Ivone Jimenez MD Primary Care Provider Kamila Dejesus Primary Care Provider Unava ilKelley Vasques DO Primary Care Provider Unava ilable Sally Weeks Primary Care Provider Kelley Kerns DO Primary Care Provider Unava ilable Encounter Details Date Type Department Care Team Description 06/18/2005 Orders Only Adult Medicine - [address] [address] Ananya Bazzi PA-C Social History Tobacco Use Types Packs/Day Years Used Date Smoking Tobacco: Never Assessed Alcohol Habits Answer Date Recorded How often [...] on filedocumented in this encounter Care Teams Oil Dispatcher Relationship Specialty Start Date End Date Community, Pcp PCP - General 01/16/10 08/21/14 Ivone Bautista MD PCP - General 06/01/06 01/15/10 Kamila Martin PCP - General 09/19/00 05/31/06 Kelley Pierce DO PCP - General Internal Medicine 08/22/14 10/24/14 Sally Weeks PCP - General Internal Medicine 10/25/14 02/10/15 Kelley Pierce DO PCP - General Internal Medicine 02/11/15 documented as of this encounter
--- OUTSIDE RECORDS SUMMARY | 2025-08-07 23:32 | XMS_ITS | Encounter Summary ---
Author Organization [employer] Address [address] [facility] 7t [place] [address] Care Team Providers Care Safety Manager Name Role Phone DeoKelley rabago Primary Care Provider + [phone] Reason for Visit * Reason Comments Med Refill Encounter Details Date Type Department Care Team (Late st Contact Info) Description 09/14/2023 Refill [facility] MEDICINE [address] [place], [place] [phone] Nilda Schaffer MD [address] [place], [place] [phone] Social History Tobacco Use Types Packs/Day Years [...] documented as of this encounter Care Teams Safety Manager Relationship Specialty Start Date End Date Kelley Pierce DO [address] [place] [address] PCP - General Family Medicine 09/19/18 documented as of this encounter
--- OUTSIDE RECORDS SUMMARY | 2025-08-07 23:32 | XMS_ITS | Encounter Summary ---
Author Organization [facility] Address [address] [place] [address] Care Team Providers Care Electric Switch Repairer Name Role Phone Kelley Pierce DO Primary Care Provider Unava ilable Sally Weeks Primary Care Provider Unavailabl Kelley Torres DO Primary Care Provider Unava ilable Reason for Visit * Reason Onset Date Comments [facility] Call 10/14/2014 Encounter Details Date Type Department Care Team Description 10/14/2014 Telephone General Surgery [address] [place] [address] Sweetie Alvarado MD [facility] Call Social History Tobacco Use Types Packs/Day Years [...] on file documented as of this encounter Miscellaneous Notes * Telephone Encounter - Sweetie Alvarado MD - 10/16/2014 9:17 AM EST Attempted to call back again. No answer. Left message to call back. Left pager number * Telephone Encounter - Tiffanie Tena - 10/14/2014 4:28 PM EST [facility] CALLED BACK * Telephone Encounter - Sweetie Alvarado MD - 10/14/2014 2:52 PM EST Attempted to call back. No answer. Left message to call back. * Telephone Encounter - Brandi Luke C.M.A. - 10/14/2014 10:27 AM EST Spoke to Natalie ([facility] nurse), she states they were able to use the wound vac today and she may be able to use it Tuesday as well but she would like new orders because she does not want to keep using the wound vac if she doesn't have to. She is aware Dr. Alvarado is at [place] [facility] today and that I will call her back when I hear from him. Dr. Alvarado please advise * Telephone Encounter - Holly Angulo - 10/14/2014 10:21 AM EST [facility] CALL Which [facility] office is calling? [facility] Full name of caller:Natalie The caller is A nurse Is the caller at the patients home?: YES Reason for call: calling to get additional wound orders since they are unable to use wound vac Does caller need an urgent call back? YES Was CONTACT Telephone # obtained above?: YES documented in this encounter Plan of Treatment Not on file documented as of this encounter Visit Diagnoses Not on filedocumented in this encounter Care Teams Electric Switch Repairer Relationship Specialty Start Date End Date Kelley Pierce DO PCP - General Internal Medicine 08/22/14 10/24/14 Sally Weeks PCP - General Internal Medicine 10/25/14 02/10/15 Kelley Pierce DO PCP - General Internal Medicine 02/11/15 documented as of this encounter
--- OUTSIDE RECORDS SUMMARY | 2025-08-07 23:32 | XMS_ITS | Encounter Summary ---
Author Organization [facility] Address [address] [place] [address] Care Team Providers Care Customer Complaint Service Supervisor Name Role Phone Community, Pcp Primary Care Provider Kelley Kerns DO Primary Care Provider Unava ilSally [place] Primary Care Provider Kelley Kerns DO Primary Care Provider Unava ilable Encounter Details Date Type Department Care Team Description 08/03/2014 Hospital Medical Records [address] [place] [address] Sweetie Alvarado MD Social History Tobacco Use [...] on filedocumented in this encounter Care Teams Customer Complaint Service Supervisor Relationship Specialty Start Date End Date Community, Pcp PCP - General 01/16/10 08/21/14 Kelley Pierce DO PCP - General Internal Medicine 08/22/14 10/24/14 Sally Weeks PCP - General Internal Medicine 10/25/14 02/10/15 Kelley Pierce DO PCP - General Internal Medicine 02/11/15 documented as of this encounter
--- OUTSIDE RECORDS SUMMARY | 2025-08-07 23:32 | XMS_ITS | Encounter Summary ---
Author Organization [employer] Address [address] [facility] 7t [place] [address] Care Team Providers Care Tool Mechanic Name Role Phone Kelley Pierce DO Primary Care Provider + [phone] Reason for Visit * Reason Comments Med Refill Encounter Details Date Type Department Care Team (Late st Contact Info) Description 06/26/2025 Refill [facility] MEDICINE [address] [place], [place] [phone] Kelley Pierce DO [address] [place] [address] Social History Tobacco Use Types Packs/Day Years [...] documented as of this encounter Care Teams Tool Mechanic Relationship Specialty Start Date End Date Kelley Pierce DO [address] [place] [id number] PCP - General Family Medicine 09/19/18 documented as of this encounter
--- OUTSIDE RECORDS SUMMARY | 2025-08-07 23:32 | XMS_ITS | Encounter Summary ---
Author Organization [facility] Address [address] [place] [address] Care Team Providers Care Product Test Engineer Name Role Phone Community, Pcp Primary Care Provider Ivone Jimenez MD Primary Care Provider Kamila Dejesus Primary Care Provider Unava ilKelley Vasques DO Primary Care Provider Unava ilable Sally Weeks Primary Care Provider Kelley Kerns DO Primary Care Provider Unava ilable Encounter Details Date Type Department Care Team Description 06/18/2005 Orders Only Adult Medicine - [address] [address] Ananya Bazzi PA-C DYSURIA (Primary Dx) Social History Tobacco Use Types Packs/Day Years [...] on file documented as of this encounter Procedures Procedure Name Priority Date/Time Associated Diagnosis Comments URINE, CULTURE Routine 06/18/2005 4:47 PM EDT Dysuria documented in this encounter Results * URINE, CULTURE (06/18/2005 4:47 PM EDT) URINE CULTURE ESCHERICHIA COLI COLONY COUNT >100,000 [facility] URINE CULTURE 4 Estimated additional species in lower colony counts of no clinical significance. [facility] 06/18/2005 4:47 PM EDT 06/18/2005 4:47 PM EDT Ananya Bazzi PA-C LAB [facility] documented in this encounter Visit Diagnoses Diagnosis Dysuria- Primary documented in this encounter Care Teams Product Test Engineer Relationship Specialty Start Date End Date Community, [...]
--- OUTSIDE RECORDS SUMMARY | 2025-08-07 23:32 | XMS_ITS | Encounter Summary ---
Author Organization [facility] Address [address] [place] [address] Care Team Providers Care Wet Pan Mixer Name Role Phone Community, Pcp Primary Care Provider Ivone Jimenez MD Primary Care Provider Kamila Dejesus Primary Care Provider Unava ilable Rudolph Barrera MD Primary Care Provider Wes Sterling Primary Care Provider Kelley Pierce DO Primary Care Provider Unava ilSally [place] Primary Care Provider Kelley Kerns DO Primary Care Provider Unava jemal Encounter Details Date Type Department Care Team Description 05/25/1999 [facility] [address] [address] Luís Lozada MD UNSPECIFIED CHEST PAIN Social History Tobacco Use Types Packs/Day Years [...] documented as of this encounter Visit Diagnoses Diagnosis Chest pain, unspecified documented in this encounter Care Teams Wet Pan Mixer Relationship Specialty Start Date End Date Community, Pcp PCP - General 01/16/10 08/21/14 Ivone Bautista MD PCP - General 06/01/06 01/15/10 Kamila Martin PCP - General 09/19/00 05/31/06 Rudolph Barrera MD PCP - General 07/19/1999 09/18/00 Wes Grossman [address] [place] [address] PCP - General 03/19/1996 07/18/1999 Kelley Pierce DO [address] [place] [address] PCP - General Internal Medicine 08/22/14 10/24/14 Sally Weeks [address] [place] [address] PCP - General Internal Medicine 10/25/14 02/10/15 Kelley Pierce DO [address] [place] [address] PCP - General Internal Medicine 02/11/15 documented as of this encounter
--- OUTSIDE RECORDS SUMMARY | 2025-08-07 23:33 | XMS_ITS | Encounter Summary ---
[facility] Address [address] [facility] [place] [address] Care Team Providers Care Manager Flight Name Role Phone Kelley Pierce DO Primary Care Provider Unava ilable Encounter Details Date Type Department Care Team Description 05/14/2020 Transfer Records Medical Records [address] [facility] [place] [address] Abstract, Provider Social History Tobacco Use Types [...] on filedocumented in this encounter Care Teams Manager Flight Relationship Specialty Start Date End Date Kelley Pierce DO PCP - General Internal Medicine 02/11/15 documented as of this encounter
--- OUTSIDE RECORDS SUMMARY | 2025-08-07 23:33 | XMS_ITS | Encounter Summary ---
[facility] Address [address] [place] [address] Care Team Providers Care Chrome Plater Helper Name Role Phone Kelley Pierce DO Primary Care Provider Unava ilable Encounter Details Date Type Department Care Team Description 08/26/2022 Orders Only Radiology - [address] [address] Kelley Pierce DO Social History Tobacco Use Types Packs/Day Years [...] on filedocumented in this encounter Care Teams Chrome Plater Helper Relationship Specialty Start Date End Date Kelley Pierce DO PCP - General Internal Medicine 02/11/15 documented as of this encounter
--- OUTSIDE RECORDS SUMMARY | 2025-08-07 23:33 | XMS_ITS | Encounter Summary ---
Author Organization [facility] Address [address] [place] [address] Care Team Providers Care Supervisor Counseling And Guidance Name Role Phone Kelley Pierce DO Primary Care Provider Unava ilable Encounter Details Date Type Department Care Team Description 05/05/2022 Orders Only Radiology - [address] [address] Kelley Pierce DO Social History Tobacco Use [...] on filedocumented in this encounter Care Teams Supervisor Counseling And Guidance Relationship Specialty Start Date End Date Kelley Pierce DO PCP - General Internal Medicine 02/11/15 documented as of this encounter
--- OUTSIDE RECORDS SUMMARY | 2025-08-07 23:33 | XMS_ITS | Clinical Summary ---
Author Organization [employer] Address [address] [place] [address] Care Team Providers Care [employer] Name Role Phone KariKelley Primary Care Provider [phone] Allergies Active Allergy Reactions Criticality Noted Date Comments Octacosanol 05/29/2024 Medications lisinopril 40 MG tablet TAKE 1 TABLET(40 MG) BY MOUTH IN THE MORNING 90 tablet 3 Active atorvastatin (Lipitor) 10 MG tablet TAKE 1 TABLET(10 MG) BY MOUTH IN THE MORNING 90 tablet 3 Active HumaLOG KWIKPEN 100 UNIT/ML injection Inject 8-16 Units under the skin with breakfast, with lunch, and with evening meal. 60 mL 2 Active levothyroxine (Synthroid) 137 MCG tablet Take 137 mcg by mouth before breakfast. 30 tablet 11 2025 Active insulin glargine (Lantus SoloStar) 100 UNIT/ML pen INJECT SUBCUTANEOUSLY 40 UNITS EVERY EVENING 45 mL 2 Active amitriptyline (Elavil) 10 MG tablet Take 1-2 tablets (10-20 mg) by mouth at bedtime. 60 tablet 3 2025 Active Continuous Glucose Smooth Stucco Resurfacer (FreeStyle Blane 3 [place]) device 1 each Once per day. Use as directed for CGM 1 each Active glucose blood (FreeStyle Precision Dano Test) test strip Use to test blood sugar 3 times daily in case of CGM failure or extremes of BG 100 each 11 2025 Active Blood Glucose Monitoring Suppl (Accu-Chek Mary Grace Plus) w/Device kit Use as directed to check BS three times a day 1 kit Active Blood Glucose Calibration (Accu-Chek Mary Grace) solution Use as directed 1 each Active Alcohol Sheets (Alcoh-Wipe) sheet Test daily before all meals/snacks and once before bedtime. 1 each Active glucose blood (Accu-Chek Mary Grace Plus) test strip TEST BLOOD SUGAR 3 TIMES A DAY 100 each 12 025 2025 Active Accu-Chek Softclix Lancets lancets TEST BLOOD SUGAR 3 TIMES A DAY 100 each 025 2025 Active Mounjaro 15 MG/0.5ML solution auto-injectorI ndications:Typ e 2 diabetes mellitus with diabetic neuropathy, with long-term current use of insulin (HCC) ADMINISTER 15 MG UNDER THE SKIN 1 TIME EVERY WEEK 2 mL 3 Active hydroCHLOROthi azide (HYDRODiuril) 25 MG tablet TAKE 1 TABLET(25 MG) BY MOUTH DAILY 90 tablet 3 Active glucose blood (Accu-Chek Guide Test) test stripIndicatio ns:Type 2 diabetes mellitus with diabetic neuropathy, with long-term current use of insulin (HCC) Use to monitor blood glucose three times daily 100 each 025 2025 Active Continuous Glucose Sensor (FreeStyle Blane 3 Plus Sensor) miscIndication s:Type 2 diabetes mellitus with diabetic neuropathy, with long-term current use of insulin (HCC) 1 each every 15 days. Apply 1 every 15 days as directed for CGM 2 each Active Continuous Glucose Sensor (FreeStyle Blane 3 Plus Sensor) misc 1 each every 15 days. Apply 1 every 15 days as directed for CGM 2 each 2024 Discontinued(R eorder (will not trigger notification to Pharmacy)) Active Problems Problem Noted Date Diagnosed Date Hyperlipidemia 08/25/2015 Obstructive sleep apnea 08/25/2015 Peripheral neuropathy 08/25/2015 Psoriasis 08/25/2015 Vitamin D deficiency 08/25/2015 History of necrotising fasciitis 09/13/2014 Diabetic retinopathy 12/23/2008 Overview (02/28/2023): Sees Dr Boykin, 11/20/09 mild retinopathy BMI 50.0-59.9, adult ([facility]) 05/07/2008 Hypothyroidism 11/12/2007 Essential hypertension 09/09/2006 Type 2 diabetes mellitus 06/15/2006 Overview (02/28/2023): she states she is followed for DM at [facility] and that her labs are up to date there. 08/31/[address] Johnson to be scheduled 06/26 Resolved Problems Problem Noted Date Diagnosed Date Resolved Date Recurrent ventral incisional hernia 12/17/2015 02/28/2023 Pure hypercholesterolemia 09/09/2006 Encounters Date Type Department Care Team Description 07/09/2025 Refill [facility] [address] [facility] [place] [id number] Maryana Henriquez, LESLEE Type 2 diabetes mellitus with diabetic neuropathy, with long-term current use of insulin ([facility]) 06/26/2025 Refill [facility] [address] [facility] [place] [id number] Kelley Pierce DO 06/06/2025 Telephone [facility] [address] [facility] [place] [address] Maryana Henriquez, RN CGM PA 05/29/2025 Refill [facility] [address] [place] [address] Kelley Pierce DO 05/27/2025 Telephone [facility] [address] [place] [address] Maryana Henriquez, RN Results 05/22/2025 Refill [facility] [address] [facility] [place] [id number] Kelley Pierce DO Type 2 diabetes mellitus with diabetic neuropathy, with long-term current use of insulin ([facility]) 05/21/2025 Refill [facility] [address] [facility] [place] [id number] Kelley Pierce DO 05/14/2025 11:15 AM EDT Office Visit [facility] [address] [place] [address] Kelley Pierce DO Type 2 diabetes mellitus with diabetic neuropathy, with long-term current use of insulin ([facility]) (Primary Dx); Essential hypertension; Other hyperlipidemia; Hypothyroidism (acquired); Obstructive sleep apnea; Venous insufficiency; Bilateral leg weakness; Other insomnia; Healthcare maintenance; Dietary counseling; Exercise counseling; Encounter for immunization 05/14/2025 Travel 05/13/[address] [facility] [address] [place] [address] Kelley Pierce DO chart prep 05/13/[address] [facility] [address] [place] [address] Kelley Pierce DO Insurance from Last 3 Months Immunizations Immunization Administration Dates Next Due Influenza High-dose Quadriva lent Preservative Free 07/25/2023,07/21/2022 Influenza injectable quadriv alent IIV4 with preservative 11/16/2017 Influenza injectable quadriv alent preservative free 07/11/2020,06/18/2019,08/25/2015 Influenza, High Dose Seasona l, Preservative Free 05/29/2024 Influenza, IIV3, injectable 06/26/2009, 8 Novel [id number], preservative-free 09/26 Pfizer Covid-19 Vaccine 12+ 10/09/2024,,07/25/2023 Pneumococcal Conjugate PCV 20 07/21/2022 Pneumococcal Polysaccharide [...] CT Colonography 1957 Colonoscopy 1957 FIT 1957 Sigmoidoscopy 1957 Diabetes: Foot Exam 1967 Eye Exam 1967 Hepatitis C Screening 1975 RSV Patients and Patients Aged 60 years or older (1 - Risk 50-74 years 1-dose series) 2007 Zoster Vaccines (1 of 2) 2007 FOBT 11/03/2024 11/03/2023 SDOH Screening 12/14/2024 12/15/2023 COVID-19 Vaccine ( season) 2025 10/09/2024, 12/23/2023, 07/25/2023, Additional history exists Influenza Vaccine (#1) 2025 , 07/25/2023, 07/21/2022, Additional history exists Depression Screening 05/29/2025 05/29/2024, 05/29/20 24 Diabetes: Hemoglobin A1C 08/14/2025 025, 05/14/2025, 10/09/2024, Additional history exists Alcohol/Substance Use Screening 05/14/2026 05/14/2025 Lipid Panel 05/14/2026 05/14/2025, 06/21, 12/23/2023, Additional history exists Tobacco Screening 05/14/2026 05/14/2025 Mammogram 06/11/2026 06/11/2025, 05/21, 02/02/2023 Diabetes: Urine Protein Screening 08/07/2026 08/07/2025, 07/25/2023 Colorectal Cancer Screening 11/03/2026 FIT DNA/Cologuard 11/03/2026 [...] Procedure Name Priority Date/Time Associated Diagnosis Comments TSH Routine 08/07/2025 1:35 PM EST Type 2 diabetes mellitus with diabetic neuropathy, with long-term current use of insulin (HCC) Essential hypertension Other hyperlipidemia Hypothyroidism (acquired) Obstructive sleep apnea Venous insufficiency Bilateral leg weakness Healthcare maintenance T4, FREE Routine 08/07/2025 1:35 PM EST Type 2 diabetes mellitus with diabetic neuropathy, with long-term current use of insulin (HCC) Essential hypertension Other hyperlipidemia Hypothyroidism (acquired) Obstructive sleep apnea Venous insufficiency Bilateral leg weakness Healthcare maintenance ALBUMIN, RANDOM URINE W/CREATININE Routine 08/07/2025 1:26 PM EST Type 2 diabetes mellitus with diabetic neuropathy, with long-term current use of insulin (HCC) Essential hypertension Other hyperlipidemia Hypothyroidism (acquired) Obstructive sleep apnea Venous insufficiency Bilateral leg weakness Healthcare maintenance Encounter for immunization THYROGLOBULIN ANTIBODIES Routine 05/14/2025 1:12 PM EDT Hypothyroidism (acquired) THYROID PEROXIDASE ANTIBODIES Routine 05/14/2025 1:12 PM EDT Hypothyroidism (acquired) CBC WITH AUTO DIFFERENTIAL Routine 05/14/2025 1:12 PM EDT Type 2 diabetes mellitus with diabetic neuropathy, with long-term current use of insulin (CMS/HCC) Essential hypertension Other hyperlipidemia Hypothyroidism (acquired) Obstructive sleep apnea Venous insufficiency Bilateral leg weakness Healthcare maintenance BASIC METABOLIC PANEL Routine 05/14/2025 1:12 PM EDT Type 2 diabetes mellitus with diabetic neuropathy, with long-term current use of insulin (CMS/HCC) Essential hypertension Other hyperlipidemia Hypothyroidism (acquired) Obstructive sleep apnea Venous insufficiency Bilateral leg weakness Healthcare maintenance HEMOGLOBIN A1C Routine 05/14/2025 1:12 PM EDT Type 2 diabetes mellitus with diabetic neuropathy, with long-term current use of insulin ([facility]) Essential hypertension Other hyperlipidemia Hypothyroidism (acquired) Obstructive sleep apnea Venous insufficiency Bilateral leg weakness Healthcare maintenance HEPATIC FUNCTION PANEL Routine 05/14/2025 1:12 PM EDT Type 2 diabetes mellitus with diabetic neuropathy, with long-term current use of insulin ([facility]) Essential hypertension Other hyperlipidemia Hypothyroidism (acquired) Obstructive sleep apnea Venous insufficiency Bilateral leg weakness Healthcare maintenance VITAMIN D,25-OH,TOTAL,IA Routine 05/14/2025 1:12 PM EDT Type 2 diabetes mellitus with diabetic neuropathy, with long-term current use of insulin ([facility]) Essential hypertension Other hyperlipidemia Hypothyroidism (acquired) Obstructive sleep apnea Venous insufficiency Bilateral leg weakness Healthcare maintenance LIPID PANEL, STANDARD Routine 05/14/2025 1:12 PM EDT Type 2 diabetes mellitus with diabetic neuropathy, with long-term current use of insulin ([facility]) Essential hypertension Other hyperlipidemia Hypothyroidism (acquired) Obstructive sleep apnea Venous insufficiency Bilateral leg weakness Healthcare maintenance T4, FREE Routine 05/14/2025 1:12 PM EDT Type 2 diabetes mellitus with diabetic neuropathy, with long-term current use of insulin ([facility]) Essential hypertension Other hyperlipidemia Hypothyroidism (acquired) Obstructive sleep apnea Venous insufficiency Bilateral leg weakness Healthcare maintenance Encounter for immunization TSH Routine 05/14/2025 1:12 PM EDT Type 2 diabetes mellitus with diabetic neuropathy, with long-term current use of insulin ([facility]) Essential hypertension Other hyperlipidemia Hypothyroidism (acquired) Obstructive sleep apnea Venous insufficiency Bilateral leg weakness Healthcare maintenance Encounter for immunization POCT GLYCATED HEMOGLOBIN, TOTAL Routine 05/14/2025 11:29 AM EDT Type 2 diabetes mellitus with diabetic neuropathy, with long-term current use of insulin ([facility]) POCT GLUCOSE Routine 05/14/2025 11:28 AM EDT Type 2 diabetes mellitus with diabetic neuropathy, with long-term current use of insulin (CMS/HCC) LAB COLOGUARD COLON CANCER SCREEN Routine 11/03/2023 9:45 AM EST Healthcare maintenance HM MAMMOGRAPHY Routine 02/02/2023 from Last 3 Months or Most Recently Relevant to Health Maintenance Results * TSH (08/07/2025 1:35 PM EST) Only the most recent of2 resultswithin the time period is included. Thyroid Stimulating Hormone 1.39 0.32 - 4.0 uIU/mL [facility] Comment:TSH 3rd Generation ( [facility]) Blood Venous blood specimen / Unknown 08/07/2025 1:35 PM EST 08/07/2025 1:35 PM EST Kelley Pierce DO LAB BLOOD ORDERABLES Final R esult Performing Organization Address City/[facility]/ZIP Co de Phone Number [facility] [address] [place] [phone] * T4, Free (08/07/2025 1:35 PM EST) Only the most recent of2 resultswithin the time period is included. Free T4 (Free Thyroxine) 1.44 0.71 - 1.85 ng/dL [facility] Blood Venous blood specimen / Unknown 08/07/2025 1:35 PM EST 08/07/2025 1:35 PM EST Kelley Pierce DO LAB BLOOD ORDERABLES Final R esult Performing Organization Address City/[facility]/ZIP Co de Phone Number [facility] [address] [place] [phone] * Albumin, Random Urine W/Creatinine (08/07/2025 1:26 PM EST) Creatinine, Urine 89.93 mg/dL [facility] Microalbumin Urine <5.0 mg/L [facility] Microalbum Creatinine Ratio Ur TNP <30 ug/mg cr [facility] Comment:Unable to calculate albumin/creatinine ratio due to lowmicroalbumin or creatinine result. Urine (Urine, Random) 08/07/2025 1:26 PM EST 08/07/2025 1:54 PM EST us Kelley Pierce DO LAB URINE ORDERABLES Final R esult [facility] [address] [place] [phone] * Vitamin D, 25-Hydroxy, Total, Immunoassay (05/14/2025 1:12 PM EDT) Vitamin D 25-OH Total 65.7 >30 ng/mL [facility] Comment: Health Based Reference Values*< 20 ng/mL [id number] ng/mL Insufficient> 30 ng/mL Sufficient*Bobby LAGUNAS. N Engl J Med. 2007;357:266-280There is no well-established upper level of normal vitamin Dlevels. Some laboratories use 50 ng/mL as an upper limit ofnormal. However, toxicity is patient-dependent and may occurat any level. Careful correlation with the patient'spresentation is necessary and, if there is concern forvitamin D toxicity, treatment should be consideredirrespective of the serum level.Care must be taken in interpreting Vitamin D results fromdifferent laboratories and methodologies. Published datademonstrated that results from patients undergoinghemodialysis may show a negative bias when tested withvarious automated 25-OH vitamin D assays when compared toLC-MS/MS.When testing samples from patients whose predominant form ofVitamin D is Vitamin D2, such as patients receiving VitaminD2 supplementation, results that are subtherapeutic shouldbe confirmed with another method such as LC-MS/MS. Blood Venous blood specimen / Unknown 05/14/2025 1:12 PM EDT 05/14/2025 3:57 PM EDT Kelley Jurcsak DO LAB BLOOD ORDERABLES Final R esult [facility] [address] [place], [place] [phone] * (ABNORMAL) CBC auto differential (05/14/2025 1:12 PM EDT) White Blood Count 6.9 4.8 - 10.8 X10*3/uL [facility] Red Blood Count 4.52 4.20 - 5.50 X10*6/uL [facility] Hemoglobin 13.3 12.0 - 16.0 g/dl [facility] Hematocrit 42.2 37.0 - 47.0 % [facility] Mean Corpuscular Volume 93.4 80.0 - 98.0 fL [facility] Mean Corpuscular Hemoglobin 29.4 27.0 - 33.0 pg [facility] Mean Corpuscular HGB Conc 31.5 31.0 - 35.0 g/dl [facility] Red Cell Distribution Width 13.3 11.0 - 16.0 % [facility] Platelet Count 253 160 - 400 X10*3/uL [facility] Mean Platelet Volume 12.3 9.4 - 12.3 fL [facility] Neutrophils Percent Auto 49.9 45 - 73 % [facility] Imm Gran Pct Auto 0.3 0.0 - 0.4 % [facility] Lymphocytes Percent Auto 40.1(H) 20 - 40 % [facility] Monocytes Percent Auto 7.7 2 - 11 % [facility] Eosinophils Percent Auto 1.3 0 - 4 % [facility] Basophils Percent Auto 0.7 0 - 2 % [facility] NRBC Pct Auto 0.0 0.0 - 0.2 /100WBC [facility] Neutrophils Absolute Auto 3.4 2.0 - 8.3 x10*3/uL [facility] Imm Gran Abs Auto 0.02 0.00 - 0.03 X10*3/uL [facility] Lymphocytes Absolute Auto 2.8 1.2 - 4.9 X10*3/uL [facility] Monocytes Absolute Auto 0.5 0.1 - 1.2 X10*3/uL [facility] Eosinophils Absolute Auto 0.1 0.0 - 0.4 X10*3/uL [facility] Basophils Absolute Auto 0.1 0.0 - 0.2 X10*3/uL [facility] NRBC Abs Auto 0.000 0.0 - 0.012 X10*3/uL [facility] Blood Venous blood specimen / Unknown 05/14/2025 1:12 PM EDT 05/14/2025 3:57 PM EDT Kelley Kari LAB BLOOD ORDERABLES Final R esult Performing Organization Address [facility] Co de Phone Number [facility] [address] [place] [phone] [phone] * Thyroid Peroxidase Antibodies (05/14/2025 1:12 PM EDT) Thyroid Peroxidase Antibodies 1 <9 IU/mL [facility] Comment:THIS TEST WAS PERFOR MED AT:[facility] [place] [phone] LILIA SANDERSON MD Blood Venous blood specimen / Unknown 05/14/2025 1:12 PM EDT 05/14/2025 3:57 PM EDT Kelley Pierce LAB BLOOD ORDERABLES Final R esult Performing Organization Address City/[facility] Co de Phone Number [facility] [address] [place] [phone] * (ABNORMAL) Thyroglobulin Antibodies (05/14/2025 1:12 PM EDT) Thyroglobulin Antibodies 89(A) < or = 1 IU/mL [facility] Comment:THIS TEST WAS PERFOR MED AT:[employer] [address] [phone] SANDERSON MD Blood Venous blood specimen / Unknown 05/14/2025 1:12 PM EDT 05/14/2025 3:57 PM EDT Kelley Kari LAB BLOOD ORDERABLES Final R esult Performing Organization Address [facility] Co de Phone Number [facility] [address] [place] [phone] * (ABNORMAL) Hemoglobin A1c (05/14/2025 1:12 PM EDT) Hemoglobin A1c 7.1(H) <6.0 % [facility] Comment:Hemoglobin A1C Refer ence Range Adults: 4.8 - 6.0 % Non diabetic: < 6.0 % Goal: < 7.0 %Additional Action Suggested: > 8.0 %Note: Hemoglobin A1c results are invalid for patients with abnormal amounts of HbF. Blood transfusions may impact the HbA1c concentration in the patient sample. Estimated Average Glucose 157 mg/dL [facility] Comment:eAG = Estimated ave rage glucose which is %A1C expressed asaverage glucose, using the formula of the Q7R-[id number] Glucose study (ADAG), Diabetes Care, Vol.31,#8,2007 Blood Venous blood specimen / Unknown 05/14/2025 1:12 PM EDT 05/14/2025 3:57 PM EDT Kelley Pierce DO LAB BLOOD ORDERABLES Final R esult Performing Organization Address [facility] Co de Phone Number [facility] [address] [place] [phone] * Hepatic Function Panel (05/14/2025 1:12 PM EDT) Bilirubin, Total 0.4 0.0 - 1.0 mg/dL [facility] Bilirubin, Direct 0.2 0.0 - 0.5 mg/dL [facility] Aspartate Amino Transferase 27 5 - 31 U/L [facility] Alanine Aminotransferase 14 0 - 31 U/L [facility] Total Protein 7.1 6.5 - 8.0 g/dL [facility] Albumin Level 4.1 3.5 - 5.0 g/dL [facility] Alkaline Phosphatase 71 39 - 117 U/L [facility] Blood Venous blood specimen / Unknown 05/14/2025 1:12 PM EDT 05/14/2025 3:57 PM EDT Kelley Pierce DO LAB BLOOD ORDERABLES Final R esult Performing Organization Address City/State/[facility] Co de Phone Number [facility] [address] [place] [phone] * (ABNORMAL) Lipid Panel, Standard (05/14/2025 1:12 PM EDT) Triglycerides 164(H) <150 mg/dL [facility] Comment:Desirable Triglyceri de: less than 150 mg/dLBorderline High Triglyceride 150-199 mg/dLHigh Triglyceride: 200-499 mg/dLVery High Triglyceride: greater than or equal to 5OO mg/dL Cholesterol 230(H) <200 mg/dL [facility] Comment:Desirable Cholestero l: less than 200 mg/dLBorderline High Cholesterol: 200-239 mg/dLHigh Cholesterol: greater than 239 mg/dL LDL Cholesterol Calculated 161(H) <100 mg/dL [facility] Comment:Desirable LDL: less than 100 mg/dLNear Optimal/Above Optimal LDL: 110- 129 mg/dLBorderline High LDL: 130-159 mg/dLHigh LDL: 160-189 mg/dLVery High LDL: greater than or equal to 190 mg/dL HDL Cholesterol 37(L) >40 mg/dL [facility] Comment:Desirable HDL: great er than 40 mg/dL Note: This HDL assay may give artificially low results in patients with liver disease. Blood Venous blood specimen / Unknown 05/14/2025 1:12 PM EDT 05/14/2025 3:57 PM EDT Kelley Pierce DO LAB BLOOD ORDERABLES Final R esult Performing Organization Address City/State/[facility] Co de Phone Number [facility] [address] [place] [phone] * (ABNORMAL) Basic Metabolic Panel (05/14/2025 1:12 PM EDT) Sodium 143 135 - 145 mmol/L [facility] Potassium 3.7 3.3 - 5.1 mmol/L [facility] Chloride 105 96 - 108 mmol/L [facility] Carbon Dioxide 27 22 - 29 mmol/L [facility] Anion Gap 15 12 - 20 [facility] Urea Nitrogen (BUN) 19(H) 9 - 16 mg/dL [facility] Creatinine, Serum 1.06 0.5 - 1.4 mg/dL [facility] Estimated Glomerular Filt Rate 52 [facility] Comment:Chronic Kidney Disea se: Estimated GFR < 60 mL/min/1.48p0Sebguo Kidney Disease: Estimated GFR < 15 mL/min/1.73m2 Glucose 101 60 - 115 mg/dL [facility] Calcium 9.7 8.4 - 10.2 mg/dL [facility] Blood Venous blood specimen / Unknown 05/14/2025 1:12 PM EDT 05/14/2025 3:57 PM EDT us Kelley Pierce DO LAB BLOOD ORDERABLES Final R esult Performing Organization Address City/[facility]/ZIP Co de Phone Number [facility] [address] [place] [phone] * (ABNORMAL) POCT HGB A1C (05/14/2025 11:29 AM EDT) Hemoglobin A1C 7.2(A) 4.0 - 5.7 % [employer] Lot # [id number] Lot# Expiration Date Blood 05/14/2025 11:2 9 AM EDT us Kelley Pierce DO POINT OF CARE TEST ENTER/MARTIN T ORDERABLES Final Result * POCT Glucose (05/14/2025 11:28 AM EDT) Glucose Blood, POC 124 60 - 200 mg/dL [employer] Lot # [id number] Lot# Expiration Date [id number] Blood Capillary blood specimen / Unknown 05/14/2025 11:28 AM EDT Kelley Pierce DO POINT OF CARE TEST ENTER/MARTIN T ORDERABLES Final Result * Cologuard?? colon cancer screening (11/03/2023 9:45 AM EST) Cologuard Result Negative Negative 11/15/19 10:05 AM EST [employer] (CLIA #:[id number]) Comment: NEGATIVE TEST RESULT. A negative Cologuard [...] screened with both Cologuard and colonoscopy. (Jose Yao et al, N Engl J Med 2014;370(14):1808-8581) The normal value (reference range) for this assay is negative. COLOGUARD RE-SCREENING RECOMMENDATION: Periodic colorectal cancer screening is an important part of preventive healthcare for asymptomatic individuals at average risk for colorectal cancer. Following a negative Cologuard result, the [place] [employer] and U.S. Multi-Society Task Force screening guidelines recommend a Cologuard re-screening interval of 3 years. References: [place] [employer] Guideline for Colorectal Cancer Screening: https://www.cancer.org/cancer/omgwc-fyrnjg-lggqdw/kriislyru-gybxpkegx-gcrtwxf/ac s-rec ommendations.html.; Juan Jose ZARATE, Fredy PRIETO, Tristan SINGLETON, Colorectal Cancer Screening: Recommendations for Physicians and Patients from the U.S. Multi-Society Task Force on Colorectal Cancer Screening , Am J Gastroenterology 2017; 112:0533-6890. TEST DESCRIPTION: Composite algorithmic analysis of stool [...] screened with both Cologuard and colonoscopy. (Jose Her. et al, N Engl J Med 2014;370(14):4215-7440.) Cologuard may produce a false negative or false positive result (no colorectal cancer or precancerous polyp present at colonoscopy follow up). A negative Cologuard test result does not guarantee the absence of CRC or advanced adenoma (pre-cancer). The current Cologuard screening interval is every 3 years. ([place] Cancer Society and [employer] Multi-Society Task Force). Cologuard performance data in a 10,000 patient pivotal study using colonoscopy as the reference method can be accessed at the following location: www.[employer]/results. Additional description of the Cologuard test process, warnings and precautions can be found at [email or web address]. Stool specimen (specimen) 11/03/2023 9:45 AM EST 11/05/2023 2:13 PM EST us Kelley Pierce DO LAB MOLECULAR DIAGNOSTICS OR DERABLES Final Result [employer] (CLIA #:[id number]) [address] [place] [id number], from Last 3 Months or Most Recently Relevant to Health Maintenance Insurance 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
--- OUTSIDE RECORDS SUMMARY | 2025-08-07 23:34 | XMS_ITS | Encounter Summary ---
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
--- OUTSIDE RECORDS SUMMARY | 2025-08-07 23:34 | XMS_ITS | Encounter Summary ---
Author Organization [employer] Address [address] [facility] [address] [place] [address] Care Team Providers Care Chemical Analytical Sampler Name Role Phone Kelley Pierce DO Primary Care Provider + [phone] Encounter Details Date Type Department Care Team ([facility] st Contact Info) Description 05/09/2024 Orders Only [facility] [address] [place], [place] [phone] Kelley Pierce DO [address] [place], [place] [phone] Social History Tobacco Use Types Packs/Day Years [...] documented as of this encounter Care Teams Chemical Analytical Sampler Relationship Specialty Start Date End Date Kelley Pierce DO [address] [place] [address] PCP - General Family Medicine 09/19/18 documented as of this encounter
== END 2025-08-07 12:28 | disposition home or self-care (01) ==
LOC: HO.NEURO 12:27
PROVIDERS: PCP Family Medicine; Visit Provider Family Medicine
DX: Z00.00 Encounter for general adult medical examination without abnormal findings (principal); G47.33 Obstructive sleep apnea (adult) (pediatric); R29.898 Other symptoms and signs involving the musculoskeletal system; E11.40 Type 2 diabetes mellitus with diabetic neuropathy, unspecified; I10 Essential (primary) hypertension; E11.69 Type 2 diabetes mellitus with other specified complication; E78.49 Other hyperlipidemia; E03.9 Hypothyroidism, unspecified; I87.2 Venous insufficiency (chronic) (peripheral); Z79.4 Long term (current) use of insulin
CPT/HCPCS: 36415; 82043; 82180; 82570; 84207; 84425; 84439; 84443; 84590; 95886; 95909

== ENCOUNTER → 2025-08-07 13:00 | Outpatient (BNV) | payer MEDICARE, SELFPAY | PROVIDERS: PCP Family Medicine; Visit Provider Physical Medicine & Rehabilitation | DX: G62.9 Polyneuropathy, unspecified (principal) | CPT/HCPCS: 95886; 95909 ==